=== PATIENT | female | born 2000 | race Two or more races ===

== ENCOUNTER 2024-06-04 22:03 | Emergency (ER) | payer OTHER ==
[2024-06-04 22:09] VITALS: BP 116/76; PULSE 90; RESP 20; TEMP 97.8; BMI 39.1
[2024-06-04] MEDS ORDERED: IBUPROFEN 600 MG TABLET (FP) PO ONE (22:58)
[2024-06-04] MEDS ORDERED: ACETAMINOPHEN 500 MG TABLET (FP) ONE (22:58)
[2024-06-04] MEDS: IBUPROFEN 600 MG TABLET (FP) PO ONE (22:59)
[2024-06-04] MEDS: ACETAMINOPHEN 500 MG TABLET (FP) PO ONE (23:00)
== END 2024-06-04 23:18 | disposition home or self-care (01) ==
LOC: JERFT 22:03
DX: S93.402A Sprain of unspecified ligament of left ankle, initial encounter (principal); W20.8XXA Other cause of strike by thrown, projected or falling object, initial encounter
CPT/HCPCS: 73610-TC-LT-FY; 73630-TC-LT; 99283-25